=== PATIENT | male | born 1960 | race Caucasian/White ===

== ENCOUNTER 2022-08-13 08:00 | Emergency (ER) | payer BC, SELFPAY ==
[2022-08-13 08:04] VITALS: BP 144/78; PULSE 81; RESP 16; TEMP 36.7; O2SAT 99
--- NOTE | 2022-08-13 08:07 | ED.EXTPRO ---
HPI - Extremity Problem General Chief complaint: Skin/Abscess/Foreign Body Stated complaint: right hand injury Time Seen by Provider: 08/13/22 08:00 Source: patient, RN notes reviewed and old records reviewed Mode of arrival: ambulatory Limitations: no limitations History of Present Illness HPI Narrative: 61-year-old male presents to the [facility] with a syrup blender on the 2nd finger right hand. Patient states that he was cleaning the immersion syrup blender, did not unplug it when it started to go. Bleed is into the tip of the 2nd finger with nail bed involvement. Unable to remove due to pain control here in [facility]. Occurred just prior to arrival. Bleeding is controlled Gentleman is left hand dominant Related Data Allergies Allergy/AdvReac Type Severity Reaction Status Date / Time No Known Allergies Allergy Verified 04/12/22 10:31 Review of Systems Review of Systems: All systems reviewed & are unremarkable except as noted in HPI and below Constitutional: Constitutional: Reports no additional constitutional complaints Eyes: Eyes: Reports no additional eye complaints ENT: Reports system reviewed and no additional complaints, except as documented Cardiovascular: Cardiovascular: Reports no additional cardiovascular complaints, Denies chest pain and Denies dyspnea Respiratory: Respiratory: Reports no additional respiratory complaints, Denies chest congestion, Denies cough and Denies dyspnea Gastrointestinal: Gastrointestinal: Reports no additional gastrointestinal complaints, Denies abdominal pain, Denies nausea and Denies vomiting Musculoskeletal: Musculoskeletal: Reports as per HPI Comments: Immersion syrup blender and hand towel attached to finger Integumentary/Breasts: Skin/Breast: Reports as per HPI Neurologic: Reports system reviewed and no additional complaints, except as documented Psychiatric: Psychiatric: Reports no additional psychiatric complaints Allergic/Immunologic: Allergic/Immunologic: Reports no additional allergic/immunologic complaints [facility] Past Medical History Medical History Abnormal colonoscopy 09/17/21 3 polyps Repeat 09/30 Normal colonoscopy 2018 Repeat 2022 Family History Family History Father Diabetes mellitus Mother Pancreatic cancer Sibling Pancreatic cancer Other Hypertension Social History Social History Smoking status: Never smoker Second hand tobacco smoke exposure: No Alcohol intake: current Drinks per week: 5 Substance use: never Substance use type: does not use Gender identity (if verbalized by the patient): Male Sexual Orientation (if Verbalized by the Patient): Straight or Heterosexual Spiritual care concerns: No Agree to blood products: Yes Comments At the time of my signature, I reviewed and agree with the nursing past medical, surgical, social, and family history. There is no relevant family history pertinent to the patient complaint. Exam Const: General: cooperative, healthy appearing, comfortable, no acute distress, well developed, alert and well nourished Nutritional Appearance: well nourished Orientation/consciousness: patient oriented x3 Limitations: no limitations HENMT: Head: normal to inspection Ears: hearing grossly normal bilaterally and external ears normal Face/Nose/Sinus: Normal external nose present, Normal nares present, Normal nasal mucous membranes and turbinates present and normal facial exam Face and sinus: normal facial exam Mouth: Yes Normal oral and palatal mucosa present, Yes lip normal and Yes moist mucous membranes Eyes: General: appearance normal, both eyes and all related structures Alignment and Position: alignment normal Periorbital: periorbital findings normal Conjunctivae: conjunctivae normal Pupils: Equal, round and reactive pupils presen
== END 2022-08-13 08:09 | disposition short-term general hospital (02) ==
PROVIDERS: Emergency Provider Nurse Practitioner; PCP Family Medicine Adolescent Medicine
DX: S61.240A Puncture wound with foreign body of right index finger without damage to nail, initial encounter (principal); W29.0XXA Contact with powered kitchen appliance, initial encounter
CPT/HCPCS: 99212; G0463

== ENCOUNTER 2022-08-13 08:32 | Emergency (ER) | payer BC, SELFPAY ==
--- NOTE | ~2022-08-13 | XR_ITS ---
EXAMINATION: XR hand RT min 3V INDICATION: Right second finger pain, finger caught in jet man TECHNIQUE: Three views of the right hand are obtained. COMPARISON: None available FINDINGS: The second finger is entrapped in a jet man rotor. The blade of the rotor crosses the media l cortex of second distal phalanx in all imaging planes. None of the provided views directly profile the jet man blade truly orthogonal to the second distal phalanx. 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 IMPRESSION: 1. Right second finger entrapped in a jet man rotator with the bladder blade appearing to enter the m edial cortex of the second distal phalanx however true orthogonal views are not obtained. Reviewed, dictated and finalized at location L. [employer] IMPRESSION: 1. Right second finger entrapped in a jet man rotator with the bladder blade ap pearing to enter the medial cortex of the second distal phalanx however true or thogonal views are not obtained.
--- NOTE | ~2022-08-13 | XR_ITS ---
EXAMINATION: XR hand RT min 3V DATE: 08/13/2022 10:22 INDICATION: Right hand foreign body removal. TECHNIQUE: 3 views of right hand were obtained. COMPARISON: Right hand radiographs at 9:07 AM FINDINGS: Bone alignment is normal. There is a nondisplaced fracture of tuft of second distal phalanx . There is bandage material around the distal second digit. There is mild osteoarthritis of second pr oximal interphalangeal joint and second metacarpophalangeal joint. IMPRESSION: 1. Nondisplaced fracture of tuft of second distal phalanx. Reviewed, dictated and finalized at location A. PLAYER
[2022-08-13 08:40] VITALS: PULSE 80; RESP 14; TEMP 36.6; O2SAT 96
[2022-08-13 08:45] VITALS: BP 152/88
--- NOTE | 2022-08-13 09:17 | ED.SKABFB ---
HPI - Skin/Abscess/Foreign Bdy General Chief complaint: Skin/Abscess/Foreign Body Stated complaint: RECEPTION MANAGER BLADE VS FINGER Time Seen by Provider: 08/13/22 08:52 History of Present Illness HPI narrative: 61-year-old male presents to the emergency room for evaluation of the right index finger injury. Patient states that he was using a submersion script coordinator when it abruptly stopped. He proceeded to put his finger into the script coordinator, only to realize that the script coordinator was stuck on a piece of food and continue to spend. Patient states that the script coordinator blade is impaled in his finger and he is unable to remove it. Related Data Allergies Allergy/AdvReac Type Severity Reaction Status Date / Time No Known Allergies Allergy Verified 08/13/22 10:26 Review of Systems Review of Systems: CONSTITUTIONAL: Denies fever, chills, or sweats. EYES: Denies visual changes, redness, or discharge. ENT: Denies rhinorrhea, congestion, sore throat, or otalgia. CARDIOVASCULAR: Denies chest pain, palpitations, or edema. RESPIRATORY: Denies cough or dyspnea. GASTROINTESTINAL: Denies abdominal pain, nausea, vomiting, or diarrhea. GENITOURINARY: Denies dysuria or hematuria. SKIN: Denies rash or itching. MUSCULOSKELETAL: Denies back pain, joint pain, or myalgia. NEUROLOGIC: Denies headache, numbness, dizziness, or weakness. PSYCHIATRIC: Denies anxiety or depression. [facility] Past Medical History Medical History Abnormal colonoscopy 09/17/21 3 polyps Repeat 09/30 Normal colonoscopy 2017 Repeat 2022 Family History Family History Father Diabetes mellitus Mother Pancreatic cancer Sibling Pancreatic cancer Other Hypertension Social History Social History Smoking status: Never smoker Second hand tobacco smoke exposure: No Alcohol intake: current Drinks per week: 5 Substance use: never Substance use type: does not use Gender identity (if verbalized by the patient): Male Sexual Orientation (if Verbalized by the Patient): Straight or Heterosexual Spiritual care concerns: No Agree to blood products: Yes Exam Narrative: GENERAL: Well-appearing, well-nourished, no physical limitations, and in no acute distress. HEAD: Normocephalic, atraumatic. EYES: Conjunctivae normal, PERRLA and EOMI. CHEST: Clear to auscultation. No respiratory distress. No wheezes rales or rhonchi. HEART: Regular rate and rhythm. No murmur heard. Normal peripheral pulses. EXTREMITIES: Normal range of motion. No edema. No clubbing or cyanosis SKIN: Right index finger: Impaled metal object to the middle phalanx which is attached to the appliance to the medial surface. Bleeding is controlled. Unable to evaluate for distal neurovascular integrity due to placement of foreign body NEURO: No focal deficits. Alert and oriented x3. MAEW. CN's II-XI intact bilaterally, normal gait PSYCH: Cooperative. Normal mood and affect. Course Vital Signs Vital signs: Vital Signs Temperature 36.6 C 08/13/22 08:40 Pulse Rate 80 08/13/22 08:40 Respiratory Rate 14 08/13/22 08:40 Pulse Oximetry 96 08/13/22 08:40 Temperature 36.6 C 08/13/22 08:40 Pulse Rate 80 08/13/22 08:40 Respiratory Rate 14 08/13/22 08:40 Blood Pressure 152/88 H 08/13/22 08:45 Pulse Oximetry 96 08/13/22 08:40 Procedures Foreign Body Removal Foreign Body #1: Foreign Body Removal Date: 08/13/22 Foreign Body Removal Time: 10:49 Time Out Performed: yes Site: right (finger) Description of foreign body: other (metal blade) Sedation/Analgesia: other (dilaudid) Technique: manual removal Confirmed by:: direct visualization and radiograph Complications: none Post-procedure exam: awake, alert, normal BP, normal HR and normal O2 sat Neurovascular:
[2022-08-13] MEDS: HYDROmorphone HCL INJ (*CRX) 1 MG/ML SYR IV PUSH (09:55)
[2022-08-13] MEDS: TETANUS,DIPHTHERIA,AC PERTUSSIS ADULT (0.5 ML) BOOSTRIX IM (10:11)
[2022-08-13] MEDS: LIDOCAINE HCL 1% PF 30 ML VIAL 20 ML INFILTRATE (10:12)
== END 2022-08-13 11:37 | disposition home or self-care (01) ==
PROVIDERS: Emergency Provider Nurse Practitioner Family; PCP Family Medicine Adolescent Medicine
DX: S61.210A Laceration without foreign body of right index finger without damage to nail, initial encounter (principal); Z23 Encounter for immunization; W29.0XXA Contact with powered kitchen appliance, initial encounter
CPT/HCPCS: 12001; 73130; 90471; 90715; 96365; 96375; 99284; J0696; J1170